=== PATIENT | male | born 1960 | race Caucasian/White ===

== ENCOUNTER 2016-02-10 02:17 | Emergency (ER) | payer OTHER ==
[2016-02-10] MEDS: DEXTROSE 50 % IVP 50 ML DISP.SYRIN IVP ONE (02:34)
[2016-02-10 02:47] LABS: BASO % 1.2 % (0-6); EOS % 3.4 % (0-6); GRAN % 67.1 % (47-80); HEMATOCRIT 37.1 % (42.0-52.0); HEMOGLOBIN 12.8 gm/dl (14.0-18.0); LYMPH % 19.8 % (16-45); MEAN CORPUSCULAR HGB CONC 34.5 g/dl (32-36); MEAN PLATELET VOLUME 10.4 fl (7.4-10.4); MONO % 8.5 % (0-9); PLATELET COUNT 301 K/uL (130-400); RED BLOOD COUNT 4.12 M/uL (4.40-5.70); RED CELL DISTRIBUTION WIDTH 13.8 % (11.5-14.5); WHITE BLOOD COUNT W/O DIFF 14.9 K/uL (4.2-12.2)
--- NOTE | 2016-02-10 02:53 | Emergency Department Record ---
History of Present Illness - General Chief complaint: Hypogylcemia Stated complaint: DIABETIC REACTION Time Seen by Provider: 02/10/16 02:44 Source: Patient, EMS Mode of Arrival: EMS - History of Present Illness Initial comments: Per EMS and friend who ois his cousin, he was playing cards and the friend noticed he was sweaty and acting funny and thought he was developing low blood sugar. EMS arrived and found first sugar 32, got 4-5 tabs of glucose, on arrival 52 BS, and 1 amp of glucose given with improvement of his mental status. He does not know why he is here, but knows he is in the hospital. He has multiple medical problems including bipolar disease, DM, depression, CAD, htn, smoking. MD Complaint: Generalized weakness Onset/Timin -: Hour(s) Location: Generalized Associated Symptoms: Diaphoresis - Related Data Home Medications Medication Instructions Recorded Confirmed Last Taken Duloxetine HCl [Cymbalta] 15 mg PO QAM 02/10/16 02/10/16 02/09/16 Duloxetine HCl [Cymbalta] 30 mg PO QPM 02/10/16 02/10/16 02/09/16 Insulin Glargine,Hum.rec.anlog 10 unit SQ QPM 02/10/16 02/10/16 02/09/16 [Lantus] Insulin Glargine,Hum.rec.anlog 15 unit SQ QAM 02/10/16 02/10/16 02/09/16 [Lantus] Levothyroxine Sodium [Synthroid] 125 mcg PO DAILY 02/10/16 02/10/16 02/09/16 Losartan Potassium [Cozaar] 50 mg PO QPM 02/10/16 02/10/16 02/09/16 Mesalamine [Lialda] 2 tab PO BID 02/10/16 02/10/16 02/09/16 Allergies Allergy/AdvReac Type Severity Reaction Status Date / Time No Known Drug Allergies Allergy Verified 02/10/16 02:21 Travel Screening - Travel/Exposure Within Last 30 Days Have you traveled within the last 30 days?: No - Travel Symptoms Symptom Screening: None Review of Systems Reviewed: No additional complaints except as noted below Constitutional: Reports: As per HPI. Denies: Chills, Fever, Malaise, Night sweats, Weakness, Weight change Eyes: Reports: As per HPI. Denies: Eye discharge, Eye pain, Photophobia, Vision change ENT: Reports: As per HPI. Denies: Congestion, Dental pain, Ear pain, Epistaxis , Hearing loss, Throat pain Respiratory: Reports: As per HPI. Denies: Cough, Dyspnea, Hemoptysis, Stridor, Wheezes Cardiovascular: Reports: As per HPI. Denies: Arrhythmia, Chest pain, Dyspnea on exertion, Edema, Murmurs, Orthopnea, Palpitations, Paroxysmal nocturnal dyspnea, Rheumatic Fever, Syncope Endocrine: Reports: As per HPI. Denies: Fatigue, Heat or cold intolerance, Polydipsia, Polyuria Gastrointestinal: Reports: As per HPI. Denies: Abdominal pain, Constipation, Diarrhea, Hematemesis, Hematochezia, Melena, Nausea, Vomiting Genitourinary: Reports: As per HPI. Denies: Dysuria, Frequency, Hematuria, Incontinence, Retention, Testicular pain, Testicular mass, Urgency Musculoskeletal: Reports: As per HPI. Denies: Arthralgia, Back pain, Gout, Joint swelling, Myalgia, Neck pain Skin: Reports: As per HPI. Denies: Bruising, Change in color, Change in hair/ nails, Lesions, Pruritus, Rash Neurological: Reports: As per HPI. Denies: Abnormal gait, Confusion, Headache, Numbness, Paresthesias, Seizure, Tingling, Tremors, Vertigo, Weakness Psychiatric: Reports: As per HPI. Denies: Anxiety, Auditory hallucinations, Depression, Homicidal thoughts, Suicidal thoughts, Visual hallucinations Hematological/Lymphatic: Reports: As per HPI. Denies: Anemia, Blood Clots, Easy bleeding, Easy bruising, Swollen glands Past Medical History - SOCIAL HISTORY Smoking Status: Current every day smoker - CARDIOVASCULAR Hx Cardio Disorders: Yes Hx Hypertension: Yes - ENDOCRINE Hx Endocrine Disorders: Yes Hx Diabetes: Yes Family Medical History Any Significant Family History?: No Family Hx Comment (NOT TO BE USED IN PLACE OF ITEMS BELOW): unknown at this time Physical Exam - General General Appearance: Cooperative, No acute distress, Other (confused) - Head Head exam: Normal inspection - Eye Eye exam: Normal appearance, PERRL Pupils: Normal accommodation - ENT ENT exam: Normal exam, Mucous membranes dry, Normal external ear exam, Normal orophraynx, TM's normal bilaterally Ear exam: Normal external inspection. negative: External canal tenderness Nasal Exam: Normal inspection. negative: Discharge, Sinus tenderness Mouth exam: Normal external inspection, Tongue normal Teeth exam: Normal inspection. negative: Dental caries Throat exam: Normal inspection. negative: Tonsillar erythema, Tonsillar exudate - Neck Neck exam: Normal inspection, Full ROM. negative: Lymphadenopathy, Meningismus , Tenderness - Respiratory Respiratory exam: Normal lung sounds bilaterally. negative: Respiratory distress - Cardiovascular Cardiovascular Exam: Regular rate, Normal rhythm, Normal heart sounds - GI/Abdominal GI/Abdominal exam: Soft, Normal bowel sounds. negative: Tenderness - Rectal Rectal exam: Deferred - exam: Deferred - Extremities Extremities exam: Normal inspection, Full ROM, Normal capillary refill. negative: Tenderness - Back Back exam: Reports: Normal inspection, Full ROM. Denies: Muscle spasm, Rash noted, Tenderness - Neurological Neurological exam: Alert, Reflexes normal - Psychiatric Psychiatric exam: Normal affect, Normal mood - Skin Skin exam: Diaphoretic (upon arrival ), Dry, Intact, Normal color, Warm Course Vital Signs 02/10/16 02/10/16 02:22 02:31 Pulse Rate 68 Pulse Rate [ 64 Pulse Ox Probe] Respiratory 28 H 18 Rate Blood Pressure 149/74 Blood Pressure 149/74 [Left Arm] Pulse Ox 94 L 93 L - Reevaluation(s) Reevaluation #1: Patient is more alert. Patient was fed a sandwich. Blood sugar 160's following that. Repeat blood sugar more recently 217. 02/10/16 05:38 Reevaluation #2: Patient is more alert now. ETOH 0.038, with drug screen positive for benzos and marijuana as well. 02/10/16 05:50 Reevaluation #3: Patient continues to be awake, appropriate, but tired from being up all night. Awaiting repeat potassium and BS results as well as patient's ride home. 02/10/16 06:12 Reevaluation #4: Repeat K= 4.6, repeat BS 206. Patient is calling for his ride home and will followup with his PCP next week. 02/10/16 06:29 Medical Decision Making - Management Options MDM Management: No Additional Work-up Planned - Data Complexity MDM Data: Labs Ordered and/or Reviewed, X-Ray Ordered and/or Reviewed (CXR two view Negative per ED physican), EKG Ordered and/or Reviewed - Lab Data Result diagrams: 02/10/16 02:33 02/10/16 06:10 - EKG Data -: EKG Interpreted by Me (? 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 Follow diabetic diet, regular balanced meals and medications as directed. Follow up with PCP wa directed. Forms: Patient Portal Access
[2016-02-10 02:59] LABS: BLOOD UREA NITROGEN 10 mg/dL (9-20); EST GLOMERULAR FILTRATION RATE > 60 ml/min
[2016-02-10 03:05] LABS: GLUCOSE,RANDOM 34 mg/dL (70-110)
[2016-02-10 03:18] LABS: ACETONE,SERUM NEGATIVE (NEGATIVE)
[2016-02-10] MEDS: ONDANSETRON HCL IV 4 MG/2 ML VIAL IVP ONE (03:20)
[2016-02-10 03:28] LABS: LACTIC ACID 3.1 mmol/L (0.7-2.1)
[2016-02-10 03:30] LABS: ACETAMINOPHEN < 10.0 ug/mL (10.0-30.0); ALCOHOL 0.038 g/dL (0-0.010); CREATINE PHOSPHOKINASE 81 U/L (55-170); SALICYLATE < 1.0 mg/dL (2.8-20.0)
[2016-02-10 03:39] LABS: CKMB 0.7 ug/L (0-6)
[2016-02-10 03:41] LABS: TROPONIN I < 0.012 ng/mL (0.00-0.034)
[2016-02-10] MEDS: POTASSIUM CHLORIDE 20 MEQ TABLET PO ONE (04:31)
[2016-02-10 04:55] LABS: URINE APPEARANCE CLEAR; URINE BILIRUBIN NEGATIVE (NEGATIVE); URINE BLOOD NEGATIVE (NEGATIVE); URINE COLOR YELLOW; URINE KETONE NEGATIVE (NEGATIVE); URINE LEUKOCYTE ESTERASE NEGATIVE (NEGATIVE); URINE NITRITE NEGATIVE (NEGATIVE); URINE PROTEIN NEGATIVE (NEGATIVE); URINE UROBILINOGEN 0.2 E.U./dL (0.20 - 1.00)
[2016-02-10 04:58] LABS: AMPHETAMINE SCREEN URINE NOT DETECTED; BARBITURATE SCREEN URINE NOT DETECTED; BENZODIAZEPINE SCREEN URINE DETECTED; COCAINE SCREEN URINE NOT DETECTED; METHADONE SCREEN URINE NOT DETECTED; METHAMPHETAMINE SCREEN NOT DETECTED; OPIATE SCREEN URINE NOT DETECTED; OXYCODONE SCREEN URINE NOT DETECTED; PHENCYCLIDINE SCREEN URINE NOT DETECTED; PROPOXYPHENE SCREEN URINE NOT DETECTED; THC SCREEN URINE DETECTED; TRICYCLIC ANTIDEPRESSANT SCRN NOT DETECTED
--- NOTE | 2016-02-13 14:12 | RADIOLOGY REPORT ---
EXAM: CHEST HISTORY: LOW BLOOD SUGAR, CHILLS AND WEAKNESS. TECHNIQUE: Two views of the chest were obtained. Comparison: None. FINDINGS: The heart is not enlarged and there is no mediastinal mass. No acute infiltrate or vascular congestion identified. IMPRESSION: UNREMARKABLE CHEST EXAMINATION. JOB NUMBER: [id number] MTDD
== END 2016-02-10 06:50 | disposition home or self-care (01) ==
LOC: ER 02:17
DX: E11.649 Type 2 diabetes mellitus with hypoglycemia without coma (principal); Z79.4 Long term (current) use of insulin; R53.1 Weakness; R68.83 Chills (without fever); R61 Generalized hyperhidrosis; I10 Essential (primary) hypertension; F17.210 Nicotine dependence, cigarettes, uncomplicated; Z79.899 Other long term (current) drug therapy
CPT/HCPCS: 99284 ×2; 96374; 96375; 82550; 82947; 83605; 82800; 84132; 85025; 82553; 84484; 80048; 36416; 82009; 82948; 81003; 71020; 93005; 93010; G0480 ×3; G0477; J2405; 80320; 80329